=== PATIENT | male | born 1965 | race Caucasian/White ===

== ENCOUNTER 2017-09-25 13:07 | Inpatient (IN) | payer BC ==
[2017-09-25] MEDS ORDERED: Acetaminophen 325 MG Tab PO ONE (13:37)
--- NOTE | 2017-09-25 13:41 | EDM.PDOC ---
ED HPI GENERAL MEDICAL PROBLEM - General Chief Complaint: Gastrointestinal Problem Stated Complaint: ABDOMINAL FLU SX Time Seen by Provider: 09/25/17 13:24 Source of Information: Reports: Patient History Limitations: Reports: No Limitations - History of Present Illness INITIAL COMMENTS - FREE TEXT/NARRATIVE: Patient is a 52 y/o male who presents to the E.D. complaining of diarrhea, abdominlap pain, fever, generalized body aches, and poor appetitie for the past 24 hrs. States he has had 15 plus diarrhea episodes daily with no blood present. Yesterday while at work symptoms drastically worsened after being exposed to aerosal smoke detector spray. States as of today has been dizzy with standing. Appetite has been poor. Complains of generalized weakness. He has had chills off and on as well. Denies ingestion bad or questionable food, recent out of country travel, recent sick exposure, or recent abx's. Denies CP, SOB, dysuria, and or rash. generalized Pain Score (Numeric/FACES): 5 - Related Data Allergies Allergy/AdvReac Type Severity Reaction Status Date / Time No Known Allergies Allergy Verified 09/26/17 04:04 Home Meds: Home Meds Levothyroxine [Synthroid] 100 mcg PO DAILY 09/26/17 [History] Levofloxacin [Levaquin] 500 mg PO DAILY #5 tab 09/27/17 [Rx] Saccharomyces Boulardii [Florastor] 250 mg PO BID #40 cap 09/27/17 [Rx] metroNIDAZOLE [Flagyl] 500 mg PO TID #15 tab 09/27/17 [Rx] Past Medical History - Past Health History Medical/Surgical History: Denies Medical/Surgical History Social & Family History - Family History Family Medical History: Noncontributory - Tobacco Use Smoking Status *Q: Light Tobacco Smoker Years of Tobacco use: 20 Packs/Tins Daily: 0.2 - Caffeine Use Caffeine Use: Reports: Coffee - Recreational Drug Use Recreational Drug Use: No ED ROS GENERAL - Review of Systems Review Of Systems: ROS reveals no pertinent complaints other than HPI. ED EXAM, GI/ABD - Physical Exam Exam: See Below Exam Limited By: No Limitations General Appearance: Alert, WD/WN, No Apparent Distress Eyes: Bilateral: Normal Appearance Ears: Hearing Grossly Normal Nose: Normal Inspection Throat/Mouth: Normal Inspection, Normal Oropharynx, Normal Voice, No Airway Compromise Neck: Normal Inspection, Supple, Non-Tender, Full Range of Motion. No: Lymphadenopathy (L), Lymphadenopathy (R) Respiratory/Chest: No Respiratory Distress, Lungs Clear, Normal Breath Sounds, No Accessory Muscle Use, Chest Non-Tender Cardiovascular: Normal Peripheral Pulses, No Murmur, Tachycardia GI/Abdominal Exam: Soft, No Organomegaly, No Distention, Tender (crampying), Abnormal Bowel Sounds (hyperactive) Back Exam: Normal Inspection. No: CVA Tenderness (L), CVA Tenderness (R) Extremities: Normal Inspection, Normal Range of Motion, Non-Tender, No Pedal Edema, Normal Capillary Refill Neurological: Alert, Oriented, CN II-XII Intact, Normal Cognition, No Motor/ Sensory Deficits Psychiatric: Normal Affect, Normal Mood Skin Exam: Warm, Dry, Intact, Normal Color, No Rash Course - Vital Signs Last Recorded V/S: Last Vital Signs Temp 98.2 F 09/27/17 12:06 Pulse 79 09/27/17 12:06 Resp 18 09/27/17 12:06 BP 125/80 09/27/17 12:06 Pulse Ox 95 09/27/17 12:06 - Orders/Labs/Meds Labs: Laboratory Tests 09/25/17 09/25/17 09/25/17 Range/Units 13:53 13:53 13:53 WBC 18.06 H (4.23-9.07) K/mm3 RBC 5.21 (4.63-6.08) M/mm3 Hgb 15.7 (13.7-17.5) gm/L Hct 45.6 (40.1-51.0) % MCV 87.5 (79.0-92.2) fl MCH 30.1 (25.7-32.2) pg MCHC 34.4 (32.2-35.5) g/dl RDW Std Deviation 41.8 (35.1-43.9) fL Plt Count 178 (163-337) K/mm3 MPV 9.4 (9.4-12.3) fl Neut % (Auto) 92.6 H (34.0-67.9) % Lymph % (Auto) 2.4 L (21.8-53.1) % [place] % (Auto) 4.5 L (5.3-12.2) % Eos % (Auto) 0.1 L (0.8-7.0) Baso % (Auto) 0.1 (0.1-1.2) % Neut # (Auto) 16.72 H (1.78-5.38) K/mm3 Lymph # (Auto) 0.44 L (1.32-3.57) K/mm3 [place] # (Auto) 0.82 (0.30-0.82) K/mm3 Eos # (Auto) 0.01 L (0.04-0.54) K/mm3 Baso # (Auto) 0.02 (0.01-0.08) K/mm3 Manual Slide Review Normal smear PT 12.2 H (9.5-12.1) SECONDS INR 1.12 APTT 30 (24-31) SECONDS Sodium (136-145) mEq/L Potassium (3.5-5.1) mEq/L Chloride (98-107) mEq/L Carbon Dioxide (21-32) mEq/L Anion Gap (5-15) BUN (7-18) mg/dL Creatinine (0.7-1.3) mg/dL Est Cr Clr Drug Dosing mL/min Estimated GFR (MDRD) (>60) mL/min BUN/Creatinine Ratio (14-18) Glucose (74-106) mg/dL Lactic Acid (0.4-2.0) mmol/L Calcium (8.5-10.1) mg/dL Total Bilirubin (0.2-1.0) mg/dL AST (15-37) U/L ALT (16-63) U/L Alkaline Phosphatase (46-116) U/L C-Reactive Protein 17.8 H* (<1.0) mg/dL Total Protein (6.4-8.2) g/dl Albumin (3.4-5.0) g/dl Globulin gm/dL Albumin/Globulin Ratio (1-2) TSH 3rd Generation 0.496 (0.358-3.74) uIU/mL Urine Color (Yellow) Urine Appearance (Clear) Urine pH (5.0-8.0) Ur Specific [place] (1.005-1.030) Urine Protein (Negative) Urine Glucose (UA) (Negative) Urine Ketones (Negative) Urine Occult Blood (Negative) Urine Nitrite (Negative) Urine Bilirubin (Negative) Urine Urobilinogen (0.2-1.0) Ur Leukocyte Esterase (Negative) Urine RBC (0-5) /hpf Urine WBC (0-5) /hpf Ur Epithelial Cells (0-5) /hpf Urine Bacteria (FEW) /hpf Urine Mucus (FEW) /hpf C.difficile 027-NAP1-B1 C. difficile Tox (PCR) Mycoplasma pneumon IgM Negative (NEGATIVE) 09/25/17 09/25/17 09/25/17 Range/Units 13:53 14:02 15:20 WBC (4.23-9.07) K/mm3 RBC (4.63-6.08) M/mm3 Hgb (13.7-17.5) gm/L Hct (40.1-51.0) % MCV (79.0-92.2) fl MCH (25.7-32.2) pg MCHC (32.2-35.5) g/dl RDW Std Deviation (35.1-43.9) fL Plt Count (163-337) K/mm3 MPV (9.4-12.3) fl Neut % (Auto) (34.0-67.9) % Lymph % (Auto) (21.8-53.1) % [place] % (Auto) (5.3-12.2) % Eos % (Auto) (0.8-7.0) Baso % (Auto) (0.1-1.2) % Neut # (Auto) (1.78-5.38) K/mm3 Lymph # (Auto) (1.32-3.57) K/mm3 [place] # (Auto) (0.30-0.82) K/mm3 Eos # (Auto) (0.04-0.54) K/mm3 Baso # (Auto) (0.01-0.08) K/mm3 Manual Slide Review PT (9.5-12.1) SECONDS INR APTT (24-31) SECONDS Sodium 135 L (136-145) mEq/L Potassium 3.3 L (3.5-5.1) mEq/L Chloride 99 (98-107) mEq/L Carbon Dioxide 23 (21-32) mEq/L Anion Gap 16.3 H (5-15) BUN 20 H (7-18) mg/dL Creatinine 1.5 H (0.7-1.3) mg/dL Est Cr Clr Drug Dosing 68.07 mL/min Estimated GFR (MDRD) 49 (>60) mL/min BUN/Creatinine Ratio 13.3 L (14-18) Glucose 101 (74-106) mg/dL Lactic Acid 0.9 (0.4-2.0) mmol/L Calcium 8.7 (8.5-10.1) mg/dL Total Bilirubin 1.1 H (0.2-1.0) mg/dL AST 17 (15-37) U/L ALT 25 (16-63) U/L Alkaline Phosphatase 45 L (46-116) U/L C-Reactive Protein (<1.0) mg/dL Total Protein 7.1 (6.4-8.2) g/dl Albumin 4.0 (3.4-5.0) g/dl Globulin 3.1 gm/dL Albumin/Globulin Ratio 1.3 (1-2) TSH 3rd Generation (0.358-3.74) uIU/mL Urine Color (Yellow) Urine Appearance (Clear) Urine pH (5.0-8.0) Ur Specific [place] (1.005-1.030) Urine Protein (Negative) Urine Glucose (UA) (Negative) Urine Ketones (Negative) Urine Occult Blood (Negative) Urine Nitrite (Negative) Urine Bilirubin (Negative) Urine Urobilinogen (0.2-1.0) Ur Leukocyte Esterase (Negative) Urine RBC (0-5) /hpf Urine WBC (0-5) /hpf Ur Epithelial Cells (0-5) /hpf Urine Bacteria (FEW) /hpf Urine Mucus (FEW) /hpf C.difficile 027-NAP1-B1 Presumptive negative C. difficile Tox (PCR) Negative Mycoplasma pneumon IgM (NEGATIVE) 09/25/17 Range/Units 16:50 WBC (4.23-9.07) K/mm3 RBC (4.63-6.08) M/mm3 Hgb (13.7-17.5) gm/L Hct (40.1-51.0) % MCV (79.0-92.2) fl MCH (25.7-32.2) pg MCHC (32.2-35.5) g/dl RDW Std Deviation (35.1-43.9) fL Plt Count (163-337) K/mm3 MPV (9.4-12.3) fl Neut % (Auto) (34.0-67.9) % Lymph % (Auto) (21.8-53.1) % [place] % (Auto) (5.3-12.2) % Eos % (Auto) (0.8-7.0) Baso % (Auto) (0.1-1.2) % Neut # (Auto) (1.78-5.38) K/mm3 Lymph # (Auto) (1.32-3.57) K/mm3 [place] # (Auto) (0.30-0.82) K/mm3 Eos # (Auto) (0.04-0.54) K/mm3 Baso # (Auto) (0.01-0.08) K/mm3 Manual Slide Review PT (9.5-12.1) SECONDS INR APTT (24-31) SECONDS Sodium (136-145) mEq/L Potassium (3.5-5.1) mEq/L Chloride (98-107) mEq/L Carbon Dioxide (21-32) mEq/L Anion Gap (5-15) BUN (7-18) mg/dL Creatinine (0.7-1.3) mg/dL Est Cr Clr Drug Dosing mL/min Estimated GFR (MDRD) (>60) mL/min BUN/Creatinine Ratio (14-18) Glucose (74-106) mg/dL Lactic Acid (0.4-2.0) mmol/L Calcium (8.5-10.1) mg/dL Total Bilirubin (0.2-1.0) mg/dL AST (15-37) U/L ALT (16-63) U/L Alkaline Phosphatase (46-116) U/L C-Reactive Protein (<1.0) mg/dL Total Protein (6.4-8.2) g/dl Albumin (3.4-5.0) g/dl Globulin gm/dL Albumin/Globulin Ratio (1-2) TSH 3rd Generation (0.358-3.74) uIU/mL Urine Color Yellow (Yellow) Urine Appearance Clear (Clear) Urine pH 6.0 (5.0-8.0) Ur Specific [place] 1.020 (1.005-1.030) Urine Protein 1+ H (Negative) Urine Glucose (UA) Negative (Negative) Urine Ketones Negative (Negative) Urine Occult Blood Negative (Negative) Urine Nitrite Negative (Negative) Urine Bilirubin Negative (Negative) Urine Urobilinogen 0.2 (0.2-1.0) Ur Leukocyte Esterase Negative (Negative) Urine RBC Not seen (0-5) /hpf Urine WBC 0-5 (0-5) /hpf Ur Epithelial Cells 0-5 (0-5) /hpf Urine Bacteria Rare (FEW) /hpf Urine Mucus Not seen (FEW) /hpf C.difficile 027-NAP1-B1 C. difficile Tox (PCR) Mycoplasma pneumon IgM (NEGATIVE) Meds: Medications Discontinued Medications Generic Name Dose Route Start Last Admin Trade Name Freq PRN Reason Stop Dose Admin Acetaminophen 975 mg 09/25/17 13:37 09/25/17 14:01 Tylenol PO 09/25/17 13:38 975 mg NOW ONE Administration Acetaminophen 650 mg 09/25/17 21:19 09/26/17 15:16 Tylenol PO 650 mg Q4H PRN Administration Pain (Mild 1-3)/fever Hydrocodone Bitart/Acetaminophen 1 tab 09/25/17 21:19 [place] 325-5 Mg PO Q4H PRN Pain (moderate 4-6) Albuterol/Ipratropium 3 ml 09/25/17 21:19 Duoneb 3.0-0.5 Mg/3 Ml NEB Q4H PRN Shortness Of Breath/wheezing Hydralazine HCl 20 mg 09/25/17 21:14 Apresoline IVPUSH Q4H PRN Hypertension Hydromorphone HCl 0.25 mg 09/25/17 21:19 Dilaudid IVPUSH Q2H PRN Pain (severe 7-10) Sodium Chloride 2,000 mls @ 999 mls/hr 09/25/17 13:45 09/25/17 14:01 Normal Saline IV 999 mls/hr ASDIRECTED ZEUS Administration Levofloxacin/Dextrose 750 mg/ 150 mls @ 100 mls/hr 09/25/17 15:26 09/25/17 19 :59 Premix IV 09/25/17 16:55 100 mls/hr ONETIME ONE Infusion Sodium Chloride 1,000 mls @ 250 mls/hr 09/25/17 17:00 09/25/17 19:55 Normal Saline IV 999 mls/hr ASDIRECTED ZEUS Infusion Sodium Chloride 1,000 mls @ 250 mls/hr 09/25/17 20:30 09/26/17 04:31 Normal Saline IV 250 mls/hr ASDIRECTED ZEUS Administration Levofloxacin/Dextrose 500 mg/ 100 mls @ 100 mls/hr 09/26/17 15:00 09/27/17 14 :46 Premix IV 100 mls/hr Q24H ZEUS Administration Metronidazole 500 mg/ Premix 100 mls @ 100 mls/hr 09/26/17 03:00 09/27/17 11: 21 IV 100 mls/hr Q8H ZEUS Administration Promethazine HCl 12.5 mg/ 50.5 mls @ 100 mls/hr 09/25/17 21:19 Sodium Chloride IV Q6H PRN Nausea/Vomiting Magnesium Sulfate 2 gm/ Premix 50 mls @ 25 mls/hr 09/26/17 09:00 09/26/17 08: 45 IV 09/26/17 10:59 25 mls/hr ONETIME ONE Administration Sodium Chloride 1,000 mls @ 125 mls/hr 09/26/17 09:00 09/27/17 09:44 Normal Saline IV 125 mls/hr ASDIRECTED [facility] Administration Ketorolac Tromethamine 30 mg 09/25/17 20:47 09/25/17 20:52 Toradol IVPUSH 09/25/17 20:48 30 mg ONETIME ONE Administration Levothyroxine Sodium 25 mcg 09/26/17 06:00 09/27/17 06:33 Levothyroxine PO 25 mcg ACBRK [facility] Administration Levothyroxine Sodium 100 mcg 09/28/17 06:00 Synthroid PO ACBREAKFAST [facility] Lorazepam 2 mg 09/25/17 21:14 Ativan IVPUSH Q4H PRN Seizures Lorazepam 1 mg 09/25/17 21:19 Ativan IV Q6H PRN Anxiety Magnesium Sulfate 1 dose 09/25/17 21:15 Pharmacy To Dose - Magnesium Replacement .XX ASDIRECTED [facility] Magnesium Sulfate 1 dose 09/25/17 21:30 Pharmacy To Dose - Magnesium Replacement .XX ASDIRECTED [facility] Metoprolol Tartrate 5 mg 09/25/17 21:14 Lopressor IVPUSH Q4H PRN Tachycardia Metronidazole 500 mg 09/25/17 19:35 09/25/17 19:55 Flagyl PO 05/20/18 19:36 500 mg ONETIME ONE Administration Ondansetron HCl 4 mg 09/25/17 21:19 Zofran IV Q6H PRN Nausea/Vomiting Potassium Chloride 1 dose 09/25/17 21:15 Pharmacy To Dose - Potassium Replacement .XX ASDIRECTED [facility] Potassium Chloride 40 meq 09/25/17 22:00 09/26/17 03:11 Klor-Con M20 PO 09/26/17 02:01 40 meq Q4H [facility]EUS Administration Saccharomyces Boulardii 250 mg 09/26/17 18:15 09/27/17 09:43 Florastor PO 250 mg BID [facility]EUS Administration Temazepam 15 mg 09/25/17 21:19 09/27/17 01:25 Restoril PO 15 mg BEDTIME PRN Administration Sleep - Re-Assessments/Exams Free Text/Narrative Re-Assessment/Exam: On examination patient's heart rate is 101-103. Oral mucosa is dry. Patient is dizzy with standing. Temperatures 100.8. Patient is septic. Per septic protocol patient should receive 30 mls of IV fluids per kilogram over 3 hours. I ordered a peripheral IV with normal saline 2 L 999 mL per hour. Ordered Tylenol 975 mg by mouth. Initial labs and studies include CBC, chem 14, blood culture 2, lactic acid, mycoplasma pneumonia, stool cultures, stool wbc's, coag studies, TSH, UA, C. difficile, chest x-ray, influenza, 1 view abdomen, and EKG. 09/25/17 13:40 Labs reviewed: White blood cell count 18.06, hemoglobin 15.7, platelet count is 178, neutrophil percent is 92.6, which will not receive 16.72, sodium 135, potassium 3.3, crit 1.5, AG 16.3, BUN 20, total bilirubin is 1.1, CRP 17.8, TSH 0.496, mycoplasma was negative. 09/25/17 16:07 I initially ordered levaquin. This was cancelled. Ordered for 3 rd liter of NS to be pushed in. Patient is unable to provide a UA. I did order CT of the abdomen and pelvis with IV and oral contrast. Cr is 1.5 will obtain with oral contrast only. I have asked nursing staff to obtain straight cath ua. Stool wbc's were positive. 1609 Patient has refused straight cath. Influenza and UA have not been obtained. 1710 Influenza screen negative. Mycoplasma pneumonia negative. UA only positive for protein. CT of the abdomen and pelvis have been delayed since 2 x trauma patients have taken precedence. 09/25/17 17:42 I have spoke with Dr. Dennis does not suggest any antibiotics at this time. Unsure source. Await for CT to rule out other etiology's. 192 Diffuse thickening of the wall of the colon is present. Findings are consistent with diffuse colitis. Ordered flagyl 500mg PO and restarted levaquin 750mg IV. MCG to be completed by nursing staff. Patient agrees with admission. I have ordered the remaining IVF be pushed wide open. I have attempted to contact Dr. Dennis with no answer. 09/25/17 20:[address] Dennis he has accepted the patient. Departure - Departure Time of Disposition: 16:07 Disposition: Admitted As Inpatient 65 Condition: Fair Clinical Impression: Colitis, Diarrhea, Dehydration - Discharge Information
[2017-09-25] MEDS ORDERED: Sodium Chloride 0.9% 2,000 ML IV SCH (13:45)
[2017-09-25] MEDS ORDERED: Levofloxacin/Dextrose 5%-Water 750 MG in Premix Bag 1 BAG IV ONE (15:26)
[2017-09-25] MEDS ORDERED: Sodium Chloride 0.9% 1,000 ML IV SCH (17:00)
[2017-09-25] MEDS ORDERED: metroNIDAZOLE 500 MG Tab PO ONE (19:35)
[2017-09-25] MEDS: Sodium Chloride 0.9% 1,000 ML IV SCH (20:32)
[2017-09-25] MEDS ORDERED: Ketorolac 30 MG/ML SDV IVPUSH ONE (20:47)
[2017-09-25] MEDS ORDERED: hydrALAZINE 20 MG/ML SDV IVPUSH PRN (21:14)
[2017-09-25] MEDS ORDERED: LORazepam 2 MG/ML SDV IVPUSH PRN (21:14)
[2017-09-25] MEDS ORDERED: Metoprolol Tartrate 5 MG/5 ML SDV IVPUSH PRN (21:14)
[2017-09-25] MEDS ORDERED: Acetaminophen/HYDROcodone 325-5 MG Tab PO PRN (21:19)
[2017-09-25] MEDS ORDERED: Albuterol/Ipratropium 3.0-0.5 MG/3 ML Neb Soln NEB PRN (21:19)
[2017-09-25] MEDS ORDERED: LORazepam 2 MG/ML SDV IV PRN (21:19)
[2017-09-25] MEDS ORDERED: HYDROmorphone 0.5 MG/0.5 ML SYRINGE IVPUSH PRN (21:19)
[2017-09-25] MEDS ORDERED: Ondansetron 4 MG/2 ML SDV IV PRN (21:19)
[2017-09-25] MEDS ORDERED: Promethazine 12.5 MG in Sodium Chloride 0.9% 50 ML IV PRN (21:19)
--- NOTE | 2017-09-25 21:33 | PCM.HP ---
H&P History of Present Illness - General Date of Service: 09/25/17 Admit Problem/Dx: Admission Diagnosis/Problem Admission Diagnosis/Problem Colitis Source of Information: Patient, Old Records, Provider, RN Notes Reviewed History Limitations: Reports: No Limitations - History of Present Illness Initial Comments - Free Text/Narative: This is a 52 yo white male with past medical hx/o hypothyroidism who comes in for evaluation of watery diarrhea that started last. He denies ingesting unusual drinks or liquids. His last meal was at about 1630; a couple days old of home made sloppy danii and potato salad. He denies any fever or chills. He reports no other family members who fell ill. He is 3 years behind of his screening colonoscopy. His initial workup in the emergency department shows a CBC remarkable for 18.06 , neutrophils of 92.6%, lymphocytes of 2.4%, monocytes of 4.5% and eosinophils of 0.1%. His coagulation studies show PT of 12.2, INR of 1.112, and a PTT of 30. His chemistry is significant for sodium of 135, potassium of 3.3, anion gap of 16.3, BUN of 20, creatinine of 1.5, total bilirubin of 1.1, alkaline phosphatase of 45, and CRP of 17.8. UA is negative for UTI. C difficile screening is negative. He is being admitted for abdominal colitis. He is full code. generalized Pain Score (Numeric/FACES): 5 - Related Data Allergies/Adverse Reactions: Allergies Allergy/AdvReac Type Severity Reaction Status Date / Time No Known Allergies Allergy Verified 09/26/17 04:04 Home Medications: Home Meds Levothyroxine [Sythroid] 100 mcg PO DAILY 09/26/17 [History] Past Medical History - Past Health History Medical/Surgical History: Denies Medical/Surgical History Social & Family History - Family History Family Medical History: Noncontributory - Tobacco Use Smoking Status *Q: Light Tobacco Smoker Years of Tobacco use: 20 Packs/Tins Daily: 0.2 - Caffeine Use Caffeine Use: Reports: Coffee - Recreational Drug Use Recreational Drug Use: No H&P Review of Systems - Review of Systems: Review Of Systems: See Below General: Denies: Fever, Chills, Malaise, Weakness HEENT: Reports: No Symptoms Pulmonary: Denies: Shortness of Breath Cardiovascular: Denies: Chest Pain, Orthopnea, Lightheadedness, Syncope, Blood Pressure Problem Gastrointestinal: Reports: Diarrhea, Flatus. Denies: Abdominal Pain, Constipation, Decreased Appetite, Difficulty Swallowing, Distension, Hematemesis , Hematochezia, Mucous in Stool, Nausea, Vomiting Genitourinary: Reports: No Symptoms Musculoskeletal: Reports: No Symptoms Skin: Denies: Mottled, Pallor, Diaphoresis, Rash, Erythema Psychiatric: Denies: Confusion, Depression, Mood Lability, Anxiety, Agitation, Hallucinations Neurological: Denies: Confusion, Dizziness, Syncope, Difficulty Walking, Weakness Hematologic/Lymphatic: Reports: No Symptoms Immunologic: Reports: No Symptoms Exam - Exam Exam: See Below - Vital Signs Vital Signs: Last Vital Signs Temp 38.5 C H 09/25/17 20:54 Pulse 108 H 09/25/17 13:09 Resp 27 H 09/25/17 20:54 BP 104/59 L 09/25/17 20:54 Pulse Ox 94 L 09/25/17 20:54 Weight: 92.986 kg - Exam General: Alert, Oriented, Cooperative. No: Mild Distress HEENT: Conjunctiva Clear, EACs Clear, EOMI, Hearing Intact, Mucosa Moist & [place] , Nares Patent, Normal Nasal Septum, Posterior Pharynx Clear, Pupils Equal, Pupils Reactive Neck: Supple, Trachea Midline, +2 Carotid Pulse wo Bruit, Full Range of Motion. No: Lymphadenopathy, JVD Lungs: Clear to Auscultation, Normal Respiratory Effort Cardiovascular: Regular Rate, Regular Rhythm GI/Abdominal Exam: Normal Bowel Sounds, Soft, No Organomegaly, No Distention, No Abnormal Bruit, Guarding, Tender (midly tender on mid abdomen with deep palpation). No: No Mass, Rigid, Rebound, Hepatomegaly, Splenomegaly (Male) Exam: Deferred Rectal (Males) Exam: Deferred Back Exam: Normal Inspection, Full Range of Motion Extremities: Normal Inspection, Normal Range of Motion, Non-Tender, No Pedal Edema, Normal Capillary Refill Peripheral Pulses: 3+: Posterior Tibial (L), Posterior Tibial (R), Dorsalis Pedis (L), Dorsalis Pedis (R) Skin: Warm, Dry, Intact Neuro Extensive - Mental Status: Oriented x3, Normal Cognition, Memory Intact Neuro Extensive - Motor, Sensory, Reflexes: CN II-XII Intact, Normal Gait, Normal Reflexes Psychiatric: Alert, Normal Affect, Normal Mood - Patient Data Lab Results Last 24 hrs: Laboratory Results - last 24 hr 09/25/17 09/25/17 09/25/17 Range/Units 13:53 13:53 13:53 WBC 18.06 H (4.23-9.07) K/mm3 RBC 5.21 (4.63-6.08) M/mm3 Hgb 15.7 (13.7-17.5) gm/L Hct 45.6 (40.1-51.0) % MCV 87.5 (79.0-92.2) fl MCH 30.1 (25.7-32.2) pg MCHC 34.4 (32.2-35.5) g/dl RDW Std Deviation 41.8 (35.1-43.9) fL Plt Count 178 (163-337) K/mm3 MPV 9.4 (9.4-12.3) fl Neut % (Auto) 92.6 H (34.0-67.9) % Lymph % (Auto) 2.4 L (21.8-53.1) % Saunders % (Auto) 4.5 L (5.3-12.2) % Eos % (Auto) 0.1 L (0.8-7.0) Baso % (Auto) 0.1 (0.1-1.2) % Neut # (Auto) 16.72 H (1.78-5.38) K/mm3 Lymph # (Auto) 0.44 L (1.32-3.57) K/mm3 Saunders # (Auto) 0.82 (0.30-0.82) K/mm3 Eos # (Auto) 0.01 L (0.04-0.54) K/mm3 Baso # (Auto) 0.02 (0.01-0.08) K/mm3 Manual Slide Review Normal smear PT 12.2 H (9.5-12.1) SECONDS INR 1.12 APTT 30 (24-31) SECONDS Sodium (136-145) mEq/L Potassium (3.5-5.1) mEq/L Chloride (98-107) mEq/L Carbon Dioxide (21-32) mEq/L Anion Gap (5-15) BUN (7-18) mg/dL Creatinine (0.7-1.3) mg/dL Est Cr Clr Drug Dosing mL/min Estimated GFR (MDRD) (>60) mL/min BUN/Creatinine Ratio (14-18) Glucose (74-106) mg/dL Lactic Acid (0.4-2.0) mmol/L Calcium (8.5-10.1) mg/dL Total Bilirubin (0.2-1.0) mg/dL AST (15-37) U/L ALT (16-63) U/L Alkaline Phosphatase (46-116) U/L C-Reactive Protein 17.8 H* (<1.0) mg/dL Total Protein (6.4-8.2) g/dl Albumin (3.4-5.0) g/dl Globulin gm/dL Albumin/Globulin Ratio (1-2) TSH 3rd Generation 0.496 (0.358-3.74) uIU/mL Urine Color (Yellow) Urine Appearance (Clear) Urine pH (5.0-8.0) Ur Specific [place] (1.005-1.030) Urine Protein (Negative) Urine Glucose (UA) (Negative) Urine Ketones (Negative) Urine Occult Blood (Negative) Urine Nitrite (Negative) Urine Bilirubin (Negative) Urine Urobilinogen (0.2-1.0) Ur Leukocyte Esterase (Negative) Urine RBC (0-5) /hpf Urine WBC (0-5) /hpf Ur Epithelial Cells (0-5) /hpf Urine Bacteria (FEW) /hpf Urine Mucus (FEW) /hpf C.difficile 027-NAP1-B1 C. difficile Tox (PCR) Mycoplasma pneumon IgM Negative (NEGATIVE) 09/25/17 09/25/17 09/25/17 Range/Units 13:53 14:02 15:20 WBC (4.23-9.07) K/mm3 RBC (4.63-6.08) M/mm3 Hgb (13.7-17.5) gm/L Hct (40.1-51.0) % MCV (79.0-92.2) fl MCH (25.7-32.2) pg MCHC (32.2-35.5) g/dl RDW Std Deviation (35.1-43.9) fL Plt Count (163-337) K/mm3 MPV (9.4-12.3) fl Neut % (Auto) (34.0-67.9) % Lymph % (Auto) (21.8-53.1) % Saunders % (Auto) (5.3-12.2) % Eos % (Auto) (0.8-7.0) Baso % (Auto) (0.1-1.2) % Neut # (Auto) (1.78-5.38) K/mm3 Lymph # (Auto) (1.32-3.57) K/mm3 Saunders # (Auto) (0.30-0.82) K/mm3 Eos # (Auto) (0.04-0.54) K/mm3 Baso # (Auto) (0.01-0.08) K/mm3 Manual Slide Review PT (9.5-12.1) SECONDS INR APTT (24-31) SECONDS Sodium 135 L (136-145) mEq/L Potassium 3.3 L (3.5-5.1) mEq/L Chloride 99 (98-107) mEq/L Carbon Dioxide 23 (21-32) mEq/L Anion Gap 16.3 H (5-15) BUN 20 H (7-18) mg/dL Creatinine 1.5 H (0.7-1.3) mg/dL Est Cr Clr Drug Dosing 68.07 mL/min Estimated GFR (MDRD) 49 (>60) mL/min BUN/Creatinine Ratio 13.3 L (14-18) Glucose 101 (74-106) mg/dL Lactic Acid 0.9 (0.4-2.0) mmol/L Calcium 8.7 (8.5-10.1) mg/dL Total Bilirubin 1.1 H (0.2-1.0) mg/dL AST 17 (15-37) U/L ALT 25 (16-63) U/L Alkaline Phosphatase 45 L (46-116) U/L C-Reactive Protein (<1.0) mg/dL Total Protein 7.1 (6.4-8.2) g/dl Albumin 4.0 (3.4-5.0) g/dl Globulin 3.1 gm/dL Albumin/Globulin Ratio 1.3 (1-2) TSH 3rd Generation (0.358-3.74) uIU/mL Urine Color (Yellow) Urine Appearance (Clear) Urine pH (5.0-8.0) Ur Specific [place] (1.005-1.030) Urine Protein (Negative) Urine Glucose (UA) (Negative) Urine Ketones (Negative) Urine Occult Blood (Negative) Urine Nitrite (Negative) Urine Bilirubin (Negative) Urine Urobilinogen (0.2-1.0) Ur Leukocyte Esterase (Negative) Urine RBC (0-5) /hpf Urine WBC (0-5) /hpf Ur Epithelial Cells (0-5) /hpf Urine Bacteria (FEW) /hpf Urine Mucus (FEW) /hpf C.difficile 027-NAP1-B1 Presumptive negative C. difficile Tox (PCR) Negative Mycoplasma pneumon IgM (NEGATIVE) 09/25/17 Range/Units 16:50 WBC (4.23-9.07) K/mm3 RBC (4.63-6.08) M/mm3 Hgb (13.7-17.5) gm/L Hct (40.1-51.0) % MCV (79.0-92.2) fl MCH (25.7-32.2) pg MCHC (32.2-35.5) g/dl RDW Std Deviation (35.1-43.9) fL Plt Count (163-337) K/mm3 MPV (9.4-12.3) fl Neut % (Auto) (34.0-67.9) % Lymph % (Auto) (21.8-53.1) % Saunders % (Auto) (5.3-12.2) % Eos % (Auto) (0.8-7.0) Baso % (Auto) (0.1-1.2) % Neut # (Auto) (1.78-5.38) K/mm3 Lymph # (Auto) (1.32-3.57) K/mm3 [place] # (Auto) (0.30-0.82) K/mm3 Eos # (Auto) (0.04-0.54) K/mm3 Baso # (Auto) (0.01-0.08) K/mm3 Manual Slide Review PT (9.5-12.1) SECONDS INR APTT (24-31) SECONDS Sodium (136-145) mEq/L Potassium (3.5-5.1) mEq/L Chloride (98-107) mEq/L Carbon Dioxide (21-32) mEq/L Anion Gap (5-15) BUN (7-18) mg/dL Creatinine (0.7-1.3) mg/dL Est Cr Clr Drug Dosing mL/min Estimated GFR (MDRD) (>60) mL/min BUN/Creatinine Ratio (14-18) Glucose (74-106) mg/dL Lactic Acid (0.4-2.0) mmol/L Calcium (8.5-10.1) mg/dL Total Bilirubin (0.2-1.0) mg/dL AST (15-37) U/L ALT (16-63) U/L Alkaline Phosphatase (46-116) U/L C-Reactive Protein (<1.0) mg/dL Total Protein (6.4-8.2) g/dl Albumin (3.4-5.0) g/dl Globulin gm/dL Albumin/Globulin Ratio (1-2) TSH 3rd Generation (0.358-3.74) uIU/mL Urine Color Yellow (Yellow) Urine Appearance Clear (Clear) Urine pH 6.0 (5.0-8.0) Ur Specific [place] 1.020 (1.005-1.030) Urine Protein 1+ H (Negative) Urine Glucose (UA) Negative (Negative) Urine Ketones Negative (Negative) Urine Occult Blood Negative (Negative) Urine Nitrite Negative (Negative) Urine Bilirubin Negative (Negative) Urine Urobilinogen 0.2 (0.2-1.0) Ur Leukocyte Esterase Negative (Negative) Urine RBC Not seen (0-5) /hpf Urine WBC 0-5 (0-5) /hpf Ur Epithelial Cells 0-5 (0-5) /hpf Urine Bacteria Rare (FEW) /hpf Urine Mucus Not seen (FEW) /hpf C.difficile 027-NAP1-B1 C. difficile Tox (PCR) Mycoplasma pneumon IgM (NEGATIVE) Result Diagrams: 09/26/17 05:40 09/26/17 05:40 Uriel Results Last 24 hrs: Microbiology 09/25/17 15:48 Influenza Type A Antigen Screen - Final Nasal Aspirate, Unspecified NEGATIVE INFLUENZA A VIRUS AG Influenza Type B Antigen Screen - Final NEGATIVE INFLUENZA B VIRUS AG 09/25/17 13:35 Stool for WBCs - Final Stool / Feces Problem List Initiated/Reviewed/Updated: Yes Orders Last 24hrs: Active Orders 24 hr Category Date Time Status Patient Status [ADT] Routine ADT 09/25/17 20:43 Active EKG Documentation Completion [RC] STAT Care 09/25/17 13:35 Active Height and Weight [RC] DAILY Care 09/25/17 21:19 Active Intake and Output [RC] QSHIFT Care 09/25/17 21:20 Active Oxygen Therapy [RC] PRN Care 09/25/17 21:20 Active RT Aerosol Therapy [RC] ASDIRECTED Care 09/25/17 21:21 Active Up ad Joyti [RC] ASDIRECTED Care 09/25/17 21:19 Active VTE/DVT Education [RC] PER UNIT ROUTINE Care 09/25/17 21:20 Active Vital Signs [RC] Q4H Care 09/25/17 21:20 Active Consult to Case Management [CONS] Routine Cons 09/25/17 21:22 Active Consult to Copper Plater [CONS] Routine Cons 09/25/17 21:22 Active Nothing per Oral Now Diet [DIET] Diet 09/25/17 Dinner Active Abdomen 1V Flat [CR] Stat Exams 09/25/17 13:35 Taken Abdomen Pelvis wo Cont [CT] Stat Exams 09/25/17 17:16 Taken Chest 2V [CR] Stat Exams 09/25/17 13:33 Taken BASIC METABOLIC PANEL,BMP [CHEM] AM Lab 09/26/17 05:11 Ordered BASIC METABOLIC PANEL,BMP [CHEM] AM Lab 09/27/17 05:11 Ordered BASIC METABOLIC PANEL,BMP [CHEM] AM Lab 09/28/17 05:11 Ordered BASIC METABOLIC PANEL,BMP [CHEM] AM Lab 09/29/17 05:11 Ordered BASIC METABOLIC PANEL,BMP [CHEM] AM Lab 09/30/17 05:11 Ordered C-REACTIVE PROTEIN [CHEM] AM Lab 09/26/17 05:11 Ordered C-REACTIVE PROTEIN [CHEM] AM Lab 09/27/17 05:11 Ordered C-REACTIVE PROTEIN [CHEM] AM Lab 09/28/17 05:11 Ordered C-REACTIVE PROTEIN [CHEM] AM Lab 09/29/17 05:11 Ordered C-REACTIVE PROTEIN [CHEM] AM Lab 09/30/17 05:11 Ordered CBC WITH AUTO DIFF [HEME] AM Lab 09/26/17 05:11 Ordered CBC WITH AUTO DIFF [HEME] AM Lab 09/27/17 05:11 Ordered CBC WITH AUTO DIFF [HEME] AM Lab 09/28/17 05:11 Ordered CBC WITH AUTO DIFF [HEME] AM Lab 09/29/17 05:11 Ordered CBC WITH AUTO DIFF [HEME] AM Lab 09/30/17 05:11 Ordered CULTURE BLOOD [BC] Stat Lab 09/25/17 13:53 Received CULTURE BLOOD [BC] Stat Lab 09/25/17 14:02 Received CULTURE STOOL + SHIGATOX [RM] Stat Lab 09/25/17 13:35 Ordered INFLUENZA A+B AG SCREEN [RM] Stat Lab 09/25/17 15:48 Ordered MAGNESIUM [CHEM] AM Lab 09/26/17 05:11 Ordered MAGNESIUM [CHEM] AM Lab 09/27/17 05:11 Ordered MAGNESIUM [CHEM] AM Lab 09/28/17 05:11 Ordered MAGNESIUM [CHEM] AM Lab 09/29/17 05:11 Ordered MAGNESIUM [CHEM] AM Lab 09/30/17 05:11 Ordered WBC, STOOL [OP] Stat Lab 09/25/17 13:35 Ordered Acetaminophen [Tylenol] Med 09/25/17 21:19 Active 650 mg PO Q4H PRN Acetaminophen/HYDROcodone [[place]ows 325-5 MG] Med 09/25/17 21:19 Active 1 tab PO Q4H PRN Albuterol/Ipratropium [DuoNeb 3.0-0.5 MG/3 ML] Med 09/25/17 21:19 Active 3 ml NEB Q4H PRN HYDROmorphone [Dilaudid] Med 09/25/17 21:19 Active 0.25 mg IVPUSH Q2H PRN LORazepam [Ativan] Med 09/25/17 21:19 Active 1 mg IV Q6H PRN LORazepam [Ativan] Med 09/25/17 21:14 Ordered 2 mg IVPUSH Q4H PRN Levofloxacin/Dextrose 5%-Water [Levaquin in D5W 500 MG/ Med 09/26/17 15:00 Ordered 100 ML] 500 mg Premix Bag 1 bag IV Q24H Levothyroxine Med 09/26/17 09:00 Ordered 25 mcg PO DAILY Magnesium Rep Pharmacy to Dose [Pharmacy to Dose - Med 09/25/17 21:15 Ordered Magnesium Replacement] 1 dose .XX ASDIRECTED Magnesium Rep Pharmacy to Dose [Pharmacy to Dose - Med 09/25/17 21:30 Ordered Magnesium Replacement] 1 dose .XX ASDIRECTED Metoprolol Tartrate [Lopressor] Med 09/25/17 21:14 Ordered 5 mg IVPUSH Q4H PRN Ondansetron [Zofran] Med 09/25/17 21:19 Active 4 mg IV Q6H PRN Potassium Rep Pharmacy to Dose [Pharmacy to Dose - Med 09/25/17 21:15 Ordered Potassium Replacement] 1 dose .XX ASDIRECTED Promethazine [Phenergan] 12.5 mg Med 09/25/17 21:19 Active Sodium Chloride 0.9% [Normal Saline] 50 ml IV Q6H Sodium Chloride 0.9% [Normal Saline] 1,000 ml Med 09/25/17 17:00 Active IV ASDIRECTED Sodium Chloride 0.9% [Normal Saline] 1,000 ml Med 09/25/17 20:30 Active IV ASDIRECTED Sodium Chloride 0.9% [Normal Saline] 2,000 ml Med 09/25/17 13:45 Active IV ASDIRECTED Temazepam [Restoril] Med 09/25/17 21:19 Ordered 15 mg PO BEDTIME PRN hydrALAZINE [Apresoline] Med 09/25/17 21:14 Ordered 20 mg IVPUSH Q4H PRN metroNIDAZOLE/Normal Saline [Flagyl 500 MG in NS 100 ML Med 09/25/17 03:00 Ordered ] 500 mg Premix Bag 1 bag IV Q8H Blood Culture x2 Reflex Set [OM.PC] Stat Oth 09/25/17 13:33 Ordered Sequential Compression Device [OM.PC] Per Unit Routine Oth 09/25/17 21:20 Ordered Resuscitation Status Routine Resus Stat 09/25/17 21:19 Ordered Medication Orders Acetaminophen (Tylenol) 650 mg PO Q4H PRN PRN Reason: Pain (Mild 1-3)/fever Hydrocodone Bitart/Acetaminophen ([place] 325-5 Mg) 1 tab PO Q4H PRN PRN Reason: Pain (moderate 4-6) Albuterol/Ipratropium (Duoneb 3.0-0.5 Mg/3 Ml) 3 ml NEB Q4H PRN PRN Reason: Shortness Of Breath/wheezing Hydralazine HCl (Apresoline) 20 mg IVPUSH Q4H PRN PRN Reason: Hypertension Hydromorphone HCl (Dilaudid) 0.25 mg IVPUSH Q2H PRN PRN Reason: Pain (severe 7-10) Sodium Chloride (Normal Saline) 2,000 mls @ 999 mls/hr IV ASDIRECTED [facility] Last Admin: 09/25/17 14:01 Dose: 999 mls/hr Sodium Chloride (Normal Saline) 1,000 mls @ 250 mls/hr IV ASDIRECTED [facility] Last Infusion: 09/25/17 19:55 Dose: 999 mls/hr Admin: 09/25/17 17:04 Dose: 250 mls/hr Sodium Chloride (Normal Saline) 1,000 mls @ 250 mls/hr IV ASDIRECTED [facility] Last Admin: 09/25/17 20:32 Dose: 250 mls/hr Levofloxacin/Dextrose 500 mg/ (Premix) 100 mls @ 100 mls/hr IV Q24H [facility] Metronidazole 500 mg/ Premix 100 mls @ 100 mls/hr IV Q8H [facility] Promethazine HCl 12.5 mg/ (Sodium Chloride) 50.5 mls @ 100 mls/hr IV Q6H PRN PRN Reason: Nausea/Vomiting Levothyroxine Sodium (Levothyroxine) 25 mcg PO DAILY [facility] Lorazepam (Ativan) 2 mg IVPUSH Q4H PRN PRN Reason: Seizures Lorazepam (Ativan) 1 mg IV Q6H PRN PRN Reason: Anxiety Magnesium Sulfate (Pharmacy To Dose - Magnesium Replacement) 1 dose .XX ASDIRECTED [facility] Magnesium Sulfate (Pharmacy To Dose - Magnesium Replacement) 1 dose .XX ASDIRECTED [facility] Metoprolol Tartrate (Lopressor) 5 mg IVPUSH Q4H PRN PRN Reason: Tachycardia Ondansetron HCl (Zofran) 4 mg IV Q6H PRN PRN Reason: Nausea/Vomiting Potassium Chloride (Pharmacy To Dose - Potassium Replacement) 1 dose .XX ASDIRECTED [facility] Temazepam (Restoril) 15 mg PO BEDTIME PRN PRN Reason: Sleep Assessment/Plan Comment:: Assessment/Plan: Acute: Abdominal Colitis - Bacterial vs Viral in etiology - Sloppy Danii and potato salad-likely Staph vs E coli - WBC pos on stool; WBC is 18.06K and CRP is 17.8 - C. Diff negative with pending O&P - Abdominal/Pelvis CT scan shows diffuse colitis - IV Flagyl 500 mg Q8H and Levaquin 500 mg IV daily - Volume Resuscitation Dehydration - 2/2 GI Loss - IV Hydration Hypokalemia - K 3.3 - 2/2 inadequate intake - Replete and monitor Chronic: Hypothyroidism Plan: Admit to [facility]SP Routine AM Labs Resume Thyroid Medication Adequate IV Hydration Monitor electrolytes Okay to drink Gatorade NPO except oral pills, ice chips, fluids Code status: 1
[2017-09-25] MEDS: Potassium Chloride 20 MEQ Tab.ER PO SCH (22:38)
[2017-09-25] MEDS: Temazepam 15 MG Cap PO PRN (22:44)
[2017-09-26] MEDS: Sodium Chloride 0.9% 1,000 ML IV SCH ×4 (01:04→17:27)
[2017-09-26] MEDS: metroNIDAZOLE/Normal Saline 500 MG in Premix Bag 1 BAG IV SCH ×3 (03:09→18:52)
[2017-09-26] MEDS: Potassium Chloride 20 MEQ Tab.ER PO SCH (03:11)
[2017-09-26] MEDS: Acetaminophen 325 MG Tab PO PRN ×2 (03:12→15:16)
[2017-09-26] MEDS: Levothyroxine 25 MCG Tab PO SCH (06:19)
[2017-09-26] MEDS ORDERED: Magnesium Sulfate/Water 2 GM in Premix Bag 1 BAG IV ONE (09:00)
--- NOTE | 2017-09-26 12:06 | CR ---
Chest: Two views of the chest were obtained. Comparison: No prior chest x-ray. Heart size and mediastinum are within normal limits. Lungs are clear. Bony structures are unremarkable. Impression: 1. Nothing acute is seen on two-view chest x-ray. Diagnostic code #1
--- NOTE | 2017-09-26 12:06 | CR ---
Abdomen: Supine view of the abdomen was obtained. Comparison: No prior abdominal imaging. Bowel gas pattern appears normal. No abnormal calcifications or soft tissue abnormality is seen. Bony structures are unremarkable. Impression: 1. Nothing acute is seen on supine abdominal x-ray. Diagnostic code #1
--- NOTE | 2017-09-26 12:06 | CT ---
CT abdomen and pelvis Technique: Multiple axial sections were obtained from above the dome of the diaphragm inferiorly through the pubic symphysis. Oral contrast has been given. No intravenous contrast was utilized. Findings: Diffuse bowel wall thickening seen throughout the colon with mild inflammatory change seen around the colonic wall. Appendix is seen which is normal in size. Visualized lung bases show nothing acute. Noncontrast appearance of the liver and spleen appear within normal limits. Adrenal glands show no nodule. Kidneys show no hydronephrosis or abnormal calcifications. Pancreas shows no discrete abnormality. Aorta shows no aneurysmal dilatation. Gallbladder contains no calcified gallstones. No retroperitoneal adenopathy or mesenteric abnormalities are seen. No pelvic mass or adenopathy is seen. Prostate gland is slightly enlarged. Bone window settings were reviewed which show scattered degenerative change within the spine. Incidental hemangioma noted of L1. Impression: 1. Findings compatible with diffuse colitis. 2. Other incidental findings. Diagnostic code #3 I agree with preliminary report from [facility], finalized at 09/25/17, 8:25 PM Central Time
[2017-09-26] MEDS: Levofloxacin/Dextrose 5%-Water 500 MG in Premix Bag 1 BAG IV SCH (15:09)
--- NOTE | 2017-09-26 15:45 | PCM.PN ---
- General Info Date of Service: 09/26/17 Admission Dx/Problem (Free Text): Admission Diagnosis/Problem Admission Diagnosis/Problem Colitis Subjective Update: In to see Christopher today. He is lying in bed. Overall he is doing quite well. He has no complaints, except for some mild abdominal pain rated 2/10. He has been sleeping well. Good appetite. Ambulating. Pain is controlled. No Fever, chills , nausea, vomiting. He is still having some diarrhea. Urinating. No concerns from nursing. Functional Status: Reports: Pain Controlled, Tolerating Diet, Ambulating, Urinating - Review of Systems General: Reports: No Symptoms. Denies: Fever, Chills HEENT: Reports: No Symptoms Pulmonary: Reports: No Symptoms Cardiovascular: Reports: No Symptoms Gastrointestinal: Reports: Abdominal Pain (2/10 pain, constant), Diarrhea. Denies: Constipation, Nausea, Vomiting Genitourinary: Reports: No Symptoms Musculoskeletal: Reports: No Symptoms Skin: Reports: No Symptoms Neurological: Reports: No Symptoms Psychiatric: Reports: No Symptoms - Patient Data Vitals - Most Recent: Last Vital Signs Temp 99.3 F 09/26/17 08:51 Pulse 92 09/26/17 12:25 Resp 20 09/26/17 12:25 BP 119/69 09/26/17 12:25 Pulse Ox 94 L 09/26/17 12:25 Weight - Most Recent: 212 lb I&O - Last 24 Hours: Intake & Output 09/26/17 09/26/17 09/26/17 06:59 14:59 22:59 Intake Total 2388 Output Total 950 Balance 1438 Lab Results Last 24 Hours: Laboratory Results - last 24 hr 09/25/17 09/25/17 09/25/17 Range/Units 13:53 15:20 16:50 WBC (4.23-9.07) K/mm3 RBC (4.63-6.08) M/mm3 Hgb (13.7-17.5) gm/L Hct (40.1-51.0) % MCV (79.0-92.2) fl MCH (25.7-32.2) pg MCHC (32.2-35.5) g/dl RDW Std Deviation (35.1-43.9) fL Plt Count (163-337) K/mm3 MPV (9.4-12.3) fl Neut % (Auto) (34.0-67.9) % Lymph % (Auto) (21.8-53.1) % [place] % (Auto) (5.3-12.2) % Eos % (Auto) (0.8-7.0) Baso % (Auto) (0.1-1.2) % Neut # (Auto) (1.78-5.38) K/mm3 Lymph # (Auto) (1.32-3.57) K/mm3 [place] # (Auto) (0.30-0.82) K/mm3 Eos # (Auto) (0.04-0.54) K/mm3 Baso # (Auto) (0.01-0.08) K/mm3 Manual Slide Review Sodium 135 L (136-145) mEq/L Potassium 3.3 L (3.5-5.1) mEq/L Chloride 99 (98-107) mEq/L Carbon Dioxide 23 (21-32) mEq/L Anion Gap 16.3 H (5-15) BUN 20 H (7-18) mg/dL Creatinine 1.5 H (0.7-1.3) mg/dL Est Cr Clr Drug Dosing 68.07 mL/min Estimated GFR (MDRD) 49 (>60) mL/min BUN/Creatinine Ratio 13.3 L (14-18) Glucose 101 (74-106) mg/dL Calcium 8.7 (8.5-10.1) mg/dL Magnesium (1.8-2.4) mg/dl Total Bilirubin 1.1 H (0.2-1.0) mg/dL AST 17 (15-37) U/L ALT 25 (16-63) U/L Alkaline Phosphatase 45 L (46-116) U/L C-Reactive Protein (<1.0) mg/dL Total Protein 7.1 (6.4-8.2) g/dl Albumin 4.0 (3.4-5.0) g/dl Globulin 3.1 gm/dL Albumin/Globulin Ratio 1.3 (1-2) Urine Color Yellow (Yellow) Urine Appearance Clear (Clear) Urine pH 6.0 (5.0-8.0) Ur Specific [place] 1.020 (1.005-1.030) Urine Protein 1+ H (Negative) Urine Glucose (UA) Negative (Negative) Urine Ketones Negative (Negative) Urine Occult Blood Negative (Negative) Urine Nitrite Negative (Negative) Urine Bilirubin Negative (Negative) Urine Urobilinogen 0.2 (0.2-1.0) Ur Leukocyte Esterase Negative (Negative) Urine RBC Not seen (0-5) /hpf Urine WBC 0-5 (0-5) /hpf Ur Epithelial Cells 0-5 (0-5) /hpf Urine Bacteria Rare (FEW) /hpf Urine Mucus Not seen (FEW) /hpf C.difficile [id number] Presumptive negative C. difficile Tox (PCR) Negative 09/26/17 09/26/17 Range/Units 05:40 05:40 WBC 12.17 H (4.23-9.07) K/mm3 RBC 4.67 (4.63-6.08) M/mm3 Hgb 14.3 (13.7-17.5) gm/L Hct 41.5 (40.1-51.0) % MCV 88.9 (79.0-92.2) fl MCH 30.6 (25.7-32.2) pg MCHC 34.5 (32.2-35.5) g/dl RDW Std Deviation 43.3 (35.1-43.9) fL Plt Count 142 L (163-337) K/mm3 MPV 9.7 (9.4-12.3) fl Neut % (Auto) 91.0 H (34.0-67.9) % Lymph % (Auto) 3.2 L (21.8-53.1) % Dar[place] % (Auto) 5.5 (5.3-12.2) % Eos % (Auto) 0 L (0.8-7.0) Baso % (Auto) 0.1 (0.1-1.2) % Neut # (Auto) 11.08 H (1.78-5.38) K/mm3 Lymph # (Auto) 0.39 L (1.32-3.57) K/mm3 [place] # (Auto) 0.67 (0.30-0.82) K/mm3 Eos # (Auto) 0.00 L (0.04-0.54) K/mm3 Baso # (Auto) 0.01 (0.01-0.08) K/mm3 Manual Slide Review Abnormal smear Sodium 139 (136-145) mEq/L Potassium 3.7 (3.5-5.1) mEq/L Chloride 108 H (98-107) mEq/L Carbon Dioxide 22 (21-32) mEq/L Anion Gap 12.7 (5-15) BUN 15 (7-18) mg/dL Creatinine 1.2 (0.7-1.3) mg/dL Est Cr Clr Drug Dosing 85.09 mL/min Estimated GFR (MDRD) > 60 (>60) mL/min BUN/Creatinine Ratio 12.5 L (14-18) Glucose 106 (74-106) mg/dL Calcium 7.9 L (8.5-10.1) mg/dL Magnesium 1.5 L (1.8-2.4) mg/dl Total Bilirubin (0.2-1.0) mg/dL AST (15-37) U/L ALT (16-63) U/L Alkaline Phosphatase (46-116) U/L C-Reactive Protein 30.3 H* (<1.0) mg/dL Total Protein (6.4-8.2) g/dl Albumin (3.4-5.0) g/dl Globulin gm/dL Albumin/Globulin Ratio (1-2) Urine Color (Yellow) Urine Appearance (Clear) Urine pH (5.0-8.0) Ur Specific [place] (1.005-1.030) Urine Protein (Negative) Urine Glucose (UA) (Negative) Urine Ketones (Negative) Urine Occult Blood (Negative) Urine Nitrite (Negative) Urine Bilirubin (Negative) Urine Urobilinogen (0.2-1.0) Ur Leukocyte Esterase (Negative) Urine RBC (0-5) /hpf Urine WBC (0-5) /hpf Ur Epithelial Cells (0-5) /hpf Urine Bacteria (FEW) /hpf Urine Mucus (FEW) /hpf C.difficile [id number] C. difficile Tox (PCR) Uriel Results Last 24 Hours: Microbiology 09/25/17 13:53 Aerobic Blood Culture - Preliminary Blood - Venous NO GROWTH AFTER 1 DAY Anaerobic Blood Culture - Preliminary NO GROWTH AFTER 1 DAY 09/25/17 14:02 Aerobic Blood Culture - Preliminary Blood - Venous - Lab Draw NO GROWTH AFTER 1 DAY Anaerobic Blood Culture - Preliminary NO GROWTH AFTER 1 DAY 09/25/17 13:35 - Final Stool / Feces NEGATIVE FOR SHIGA TOXIN 1 - Final NEGATIVE FOR SHIGA TOXIN 2 09/25/17 15:48 Influenza Type A Antigen Screen - Final Nasal Aspirate, Unspecified NEGATIVE INFLUENZA A VIRUS AG Influenza Type B Antigen Screen - Final NEGATIVE INFLUENZA B VIRUS AG 09/25/17 13:35 Stool for WBCs - Final Stool / Feces Med Orders - Current: Current Medications Acetaminophen (Tylenol) 650 mg PO Q4H PRN PRN Reason: Pain (Mild 1-3)/fever Last Admin: 09/26/17 15:16 Dose: 650 mg Hydrocodone Bitart/Acetaminophen ([place] 325-5 Mg) 1 tab PO Q4H PRN PRN Reason: Pain (moderate 4-6) Albuterol/Ipratropium (Duoneb 3.0-0.5 Mg/3 Ml) 3 ml NEB Q4H PRN PRN Reason: Shortness Of Breath/wheezing Hydralazine HCl (Apresoline) 20 mg IVPUSH Q4H PRN PRN Reason: Hypertension Hydromorphone HCl (Dilaudid) 0.25 mg IVPUSH Q2H PRN PRN Reason: Pain (severe 7-10) Levofloxacin/Dextrose 500 mg/ (Premix) 100 mls @ 100 mls/hr IV Q24H [facility] Last Admin: 09/26/17 15:09 Dose: 100 mls/hr Metronidazole 500 mg/ Premix 100 mls @ 100 mls/hr IV Q8H [facility] Last Admin: 09/26/17 11:21 Dose: 100 mls/hr Promethazine HCl 12.5 mg/ (Sodium Chloride) 50.5 mls @ 100 mls/hr IV Q6H PRN PRN Reason: Nausea/Vomiting Sodium Chloride (Normal Saline) 1,000 mls @ 125 mls/hr IV ASDIRECTED [facility] Last Admin: 09/26/17 09:11 Dose: 125 mls/hr Levothyroxine Sodium (Levothyroxine) 25 mcg PO ACBRK [facility] Last Admin: 09/26/17 06:19 Dose: 25 mcg Lorazepam (Ativan) 2 mg IVPUSH Q4H PRN PRN Reason: Seizures Lorazepam (Ativan) 1 mg IV Q6H PRN PRN Reason: Anxiety Magnesium Sulfate (Pharmacy To Dose - Magnesium Replacement) 1 dose .XX ASDIRECTED [facility] Metoprolol Tartrate (Lopressor) 5 mg IVPUSH Q4H PRN PRN Reason: Tachycardia Ondansetron HCl (Zofran) 4 mg IV Q6H PRN PRN Reason: Nausea/Vomiting Potassium Chloride (Pharmacy To Dose - Potassium Replacement) 1 dose .XX ASDIRECTED [facility] Temazepam (Restoril) 15 mg PO BEDTIME PRN PRN Reason: Sleep Last Admin: 09/25/17 22:44 Dose: 15 mg Discontinued Medications Acetaminophen (Tylenol) 975 mg PO NOW ONE Stop: 09/25/17 13:38 Last Admin: 09/25/17 14:01 Dose: 975 mg Sodium Chloride (Normal Saline) 2,000 mls @ 999 mls/hr IV ASDIRECTED [facility] Last Admin: 09/25/17 14:01 Dose: 999 mls/hr Levofloxacin/Dextrose 750 mg/ (Premix) 150 mls @ 100 mls/hr IV ONETIME ONE Stop: 09/25/17 16:55 Last Infusion: 09/25/17 19:59 Dose: 100 mls/hr Sodium Chloride (Normal Saline) 1,000 mls @ 250 mls/hr IV ASDIRECTED [facility] Last Infusion: 09/25/17 19:55 Dose: 999 mls/hr Sodium Chloride (Normal Saline) 1,000 mls @ 250 mls/hr IV ASDIRECTED [facility] Last Admin: 09/26/17 04:31 Dose: 250 mls/hr Magnesium Sulfate 2 gm/ Premix 50 mls @ 25 mls/hr IV ONETIME ONE Stop: 09/26/17 10:59 Last Admin: 09/26/17 08:45 Dose: 25 mls/hr Ketorolac Tromethamine (Toradol) 30 mg IVPUSH ONETIME ONE Stop: 09/25/17 20:48 Last Admin: 09/25/17 20:52 Dose: 30 mg Magnesium Sulfate (Pharmacy To Dose - Magnesium Replacement) 1 dose .XX ASDIRECTED [facility] Metronidazole (Flagyl) 500 mg PO ONETIME ONE Stop: 09/25/17 19:36 Last Admin: 09/25/17 19:55 Dose: 500 mg Potassium Chloride (Klor-Con M20) 40 meq PO Q4H [facility]EUS Stop: 09/26/17 02:01 Last Admin: 09/26/17 03:11 Dose: 40 meq - Exam Quality Assessment: DVT Prophylaxis General: Alert, Oriented, Cooperative, No Acute Distress HEENT: Pupils Equal, Pupils Reactive, EOMI, Mucous Membr. Moist/[place] Neck: Supple Lungs: Clear to Auscultation, Normal Respiratory Effort Cardiovascular: Regular Rate, Regular Rhythm GI/Abdominal Exam: Soft, Non-Tender, No Organomegaly, No Distention, No Mass, Pelvis Stable, Abnormal Bowel Sounds (hypoactive) (Male) Exam: Deferred Back Exam: Normal Inspection, Full Range of Motion Extremities: Normal Inspection, Normal Range of Motion, Non-Tender, No Pedal Edema, Normal Capillary Refill Peripheral Pulses: 2+: Posterior Tibial (L), Posterior Tibial (R), Dorsalis Pedis (L), Dorsalis Pedis (R) Skin: Warm, Dry, Intact Neurological: No New Focal Deficit Psy/Mental Status: Alert, Normal Affect, Normal Mood - Problem List & Annotations (1) Colitis SNOMED Code(s): 08632755 Code(s): K52.9 - NONINFECTIVE GASTROENTERITIS AND COLITIS, UNSPECIFIED Status: Acute Priority: High Current Visit: Yes (2) Diarrhea SNOMED Code(s): 02681611 Code(s): R19.7 - DIARRHEA, UNSPECIFIED Status: Acute Priority: High Current Visit: Yes - Problem List Review Problem List Initiated/Reviewed/Updated: Yes - My Orders Last 24 Hours: My Active Orders 09/26/17 Lunch Clear Liquid Diet [DIET] - Plan Plan:: Assessment/Plan: Acute: Abdominal Colitis - Bacterial vs Viral in etiology - Sloppy Noel and potato salad-likely Staph vs E coli - WBC pos on stool; WBC is 18.06K-->12.17k and CRP is 17.8-->30.3 - Blood Cx, Influenza, Stool Cx, C. Diff negative with pending O&P - Abdominal/Pelvis CT scan shows diffuse colitis - IV Flagyl 500 mg Q8H and Levaquin 500 mg IV daily - Volume Resuscitation Dehydration - 2/2 GI Loss - IV Hydration Hypokalemia - K 3.3 - 2/2 inadequate intake - Replete and monitor Chronic: Hypothyroidism Plan: Admit to [facility] Routine AM Labs Resume Thyroid Medication Adequate IV Hydration Monitor electrolytes Okay to drink Gatorade NPO except oral pills, ice chips, fluids Code status: 1 Most likely D/C tomorrow pending clinical disposition
[2017-09-26] MEDS: Saccharomyces Boulardii (Probiotic) 250 MG Cap PO SCH ×2 (18:52→20:52)
[2017-09-27] MEDS: Temazepam 15 MG Cap PO PRN (01:25)
[2017-09-27] MEDS: Sodium Chloride 0.9% 1,000 ML IV SCH ×2 (01:29→09:44)
[2017-09-27] MEDS: metroNIDAZOLE/Normal Saline 500 MG in Premix Bag 1 BAG IV SCH ×2 (03:50→11:21)
[2017-09-27] MEDS: Levothyroxine 25 MCG Tab PO SCH (06:33)
[2017-09-27] MEDS: Saccharomyces Boulardii (Probiotic) 250 MG Cap PO SCH (09:43)
--- NOTE | 2017-09-27 12:08 | PCM.DCSUM1 ---
Discharge Summary - Hospital Course HPI Initial Comments: This is a 52 yo white male with past medical hx/o hypothyroidism who comes in for evaluation of watery diarrhea that started last. He denies ingesting unusual drinks or liquids. His last meal was at about 1630; a couple days old of home made sloppy danii and potato salad. He denies any fever or chills. He reports no other family members who fell ill. He is 3 years behind of his screening colonoscopy. His initial workup in the emergency department shows a CBC remarkable for 18.06 , neutrophils of 92.6%, lymphocytes of 2.4%, monocytes of 4.5% and eosinophils of 0.1%. His coagulation studies show PT of 12.2, INR of 1.112, and a PTT of 30. His chemistry is significant for sodium of 135, potassium of 3.3, anion gap of 16.3, BUN of 20, creatinine of 1.5, total bilirubin of 1.1, alkaline phosphatase of 45, and CRP of 17.8. UA is negative for UTI. C difficile screening is negative. He is being admitted for abdominal colitis. He is full code. generalized - Discharge Data Discharge Date: 09/27/17 (ADMIT 09/25/17) Discharge Disposition: Home, Self-Care 01 Condition: Good - Discharge Diagnosis/Problem(s) (1) Colitis SNOMED Code(s): 32769399 ICD Code: K52.9 - NONINFECTIVE GASTROENTERITIS AND COLITIS, UNSPECIFIED Status: Acute Priority: High Current Visit: Yes (2) Diarrhea SNOMED Code(s): 20537361 ICD Code: R19.7 - DIARRHEA, UNSPECIFIED Status: Acute Priority: High Current Visit: Yes - Patient Summary/Data Operative Procedure(s) Performed: none Complications: none Consults: Consultations 09/25/17 21:22 Consult to Case Management [CONS] Routine Consult to Frame Stripper [CONS] Routine Labs Pending at D/C: none Recommended Follow-up Testing/Procedures: Follow up with PCP in 7-10 days Planned Operative Procedure(s) after DC: none Hospital Course: Assessment/Plan: Acute: Abdominal Colitis - Bacterial vs Viral in etiology - Sloppy Danii and potato salad-likely Staph vs E coli - WBC pos on stool; WBC is 18.06-->12.17-->6.81 and CRP is 17.8-->30.3-->18.7 - Blood Cx, Influenza, Stool Cx, C. Diff negative with pending O&P - Abdominal/Pelvis CT scan shows diffuse colitis - IV Flagyl 500 mg Q8H and Levaquin 500 mg IV daily - Volume Resuscitation Dehydration - 2/2 GI Loss - IV Hydration Tobacco use -Chewer -Provided practical counseling and cessation education and offered prescription to help quit -Does not want to quit at this time Resolved: Hypokalemia - K 3.3 -->3.6 - 2/2 inadequate intake - Replete and monitor Chronic: Hypothyroidism Plan: Admit to [facility] Routine AM Labs Resume Thyroid Medication Adequate IV Hydration Monitor electrolytes Full liquid diet, advance as tolerated Code status: 1 D/C home today Christopher has recovered quite well after being admitted for abdominal colitis. He had multiple tests done. All have been negative except for WBC in stool and CT showing diffuse colitis. The labs are now trending down and he clinically is showing improvement. He no longer has abdominal pain or diarrhea. He should follow-up with his primary care provider in 7-10 days. He was discharged home on Levaquin 500mg Q daily x 5 days, Flagyl 500mg TID x5 days, and Probiotics for completion of treatment. He will be discharged home today. - Patient Instructions Diet: Full Liquid Diet (advance as tolerated) Diet, Other: "BRAT" diet: Banana, Rice, Applesauce, [place] Activity: As Tolerated Driving: May Drive Today Showering/Bathing: May Shower Notify Provider of: Fever, Increased Pain, Nausea and/or Vomiting - Discharge Plan Prescriptions/Med Rec: Levofloxacin [Levaquin] 500 mg PO DAILY #5 tab metroNIDAZOLE [Flagyl] 500 mg PO TID #15 tab Saccharomyces Boulardii [Florastor] 250 mg PO BID #40 cap Home Medications: Home Meds Levothyroxine [Synthroid] 100 mcg PO DAILY 09/26/17 [History] Levofloxacin [Levaquin] 500 mg PO DAILY #5 tab 09/27/17 [Rx] Saccharomyces Boulardii [Florastor] 250 mg PO BID #40 cap 09/27/17 [Rx] metroNIDAZOLE [Flagyl] 500 mg PO TID #15 tab 09/27/17 [Rx] Patient Handouts: Food Choices to Help Relieve Diarrhea, Adult, Dehydration, Adult, [id number], Colitis, Diarrhea, Adult, [id number], Steps to Quit Smoking, Irritable Bowel Syndrome, Adult Referrals: PCP,Not In Area [Primary Care Provider] - - Discharge Summary/Plan Comment DC Time >30 min.: Yes (40) - General Info Admission Dx/Problem (Free Text: Admission Diagnosis/Problem Admission Diagnosis/Problem Colitis Subjective Update: In to see Christopher today. He is lying in bed. Overall he is doing quite well. He has no complaints, states he feels great today and no longer has abdominal pain or diarrhea. He has been sleeping well. Good appetite- advance to full liquid diet. Ambulating. Pain is controlled. No Fever, chills, nausea, vomiting. No concerns from nursing. He will be d/c'd home today. Discussed advancing to "BRAT " diet and avoiding dairy. Functional Status: Reports: Pain Controlled, Tolerating Diet, Ambulating, Urinating - Review of Systems General: Reports: No Symptoms. Denies: Fever, Chills HEENT: Reports: No Symptoms Pulmonary: Reports: No Symptoms Cardiovascular: Reports: No Symptoms Gastrointestinal: Reports: No Symptoms. Denies: Abdominal Pain, Diarrhea, Nausea, Vomiting Genitourinary: Reports: No Symptoms Musculoskeletal: Reports: No Symptoms Skin: Reports: No Symptoms Neurological: Reports: No Symptoms Psychiatric: Reports: No Symptoms - Patient Data Vitals - Most Recent: Last Vital Signs Temp 99.0 F 09/27/17 08:42 Pulse 76 09/27/17 08:42 Resp 16 09/27/17 08:42 BP 123/79 09/27/17 08:42 Pulse Ox 95 09/27/17 08:42 Weight - Most Recent: 213 lb 12.8 oz I&O - Last 24 hours: Intake & Output 09/26/17 09/27/17 09/27/17 22:59 06:59 14:59 Intake Total 9143 3626 409 Output Total 1300 Balance 5497 4144 425 Lab Results - Last 24 hrs: Laboratory Results - last 24 hr 09/27/17 09/27/17 Range/Units 05:40 05:40 WBC 6.81 (4.23-9.07) K/mm3 RBC 4.45 L (4.63-6.08) M/mm3 Hgb 13.6 L (13.7-17.5) gm/L Hct 39.7 L (40.1-51.0) % MCV 89.2 (79.0-92.2) fl MCH 30.6 (25.7-32.2) pg MCHC 34.3 (32.2-35.5) g/dl RDW Std Deviation 42.8 (35.1-43.9) fL Plt Count 135 L (163-337) K/mm3 MPV 9.4 (9.4-12.3) fl Neut % (Auto) 79.7 H (34.0-67.9) % Lymph % (Auto) 9.4 L (21.8-53.1) % [place] % (Auto) 8.8 (5.3-12.2) % Eos % (Auto) 1.9 (0.8-7.0) Baso % (Auto) 0.1 (0.1-1.2) % Neut # (Auto) 5.42 H (1.78-5.38) K/mm3 Lymph # (Auto) 0.64 L (1.32-3.57) K/mm3 [place] # (Auto) 0.60 (0.30-0.82) K/mm3 Eos # (Auto) 0.13 (0.04-0.54) K/mm3 Baso # (Auto) 0.01 (0.01-0.08) K/mm3 Manual Slide Review Abnormal smear Sodium 141 (136-145) mEq/L Potassium 3.6 (3.5-5.1) mEq/L Chloride 108 H (98-107) mEq/L Carbon Dioxide 24 (21-32) mEq/L Anion Gap 12.6 (5-15) BUN 6 L (7-18) mg/dL Creatinine 0.9 (0.7-1.3) mg/dL Est Cr Clr Drug Dosing 113.45 mL/min Estimated GFR (MDRD) > 60 (>60) mL/min BUN/Creatinine Ratio 6.7 L (14-18) Glucose 110 H (74-106) mg/dL Calcium 8.1 L (8.5-10.1) mg/dL Magnesium 1.8 (1.8-2.4) mg/dl C-Reactive Protein 18.7 H* (<1.0) mg/dL SHMUEL Results - Last 24 hrs: Microbiology 09/25/17 13:35 Stool Culture - Preliminary Stool / Feces NORMAL ENTERIC PAULA 2 DAYS - Final NEGATIVE FOR SHIGA TOXIN 1 - Final NEGATIVE FOR SHIGA TOXIN 2 09/25/17 13:53 Aerobic Blood Culture - Preliminary Blood - Venous NO GROWTH AFTER 1 DAY Anaerobic Blood Culture - Preliminary NO GROWTH AFTER 1 DAY 09/25/17 14:02 Aerobic Blood Culture - Preliminary Blood - Venous - Lab Draw NO GROWTH AFTER 1 DAY Anaerobic Blood Culture - Preliminary NO GROWTH AFTER 1 DAY Med Orders - Current: Current Medications Acetaminophen (Tylenol) 650 mg PO Q4H PRN PRN Reason: Pain (Mild 1-3)/fever Last Admin: 09/26/17 15:16 Dose: 650 mg Hydrocodone Bitart/Acetaminophen ([place] 325-5 Mg) 1 tab PO Q4H PRN PRN Reason: Pain (moderate 4-6) Albuterol/Ipratropium (Duoneb 3.0-0.5 Mg/3 Ml) 3 ml NEB Q4H PRN PRN Reason: Shortness Of Breath/wheezing Hydralazine HCl (Apresoline) 20 mg IVPUSH Q4H PRN PRN Reason: Hypertension Hydromorphone HCl (Dilaudid) 0.25 mg IVPUSH Q2H PRN PRN Reason: Pain (severe 7-10) Levofloxacin/Dextrose 500 mg/ (Premix) 100 mls @ 100 mls/hr IV Q24H [facility] Last Admin: 09/26/17 15:09 Dose: 100 mls/hr Metronidazole 500 mg/ Premix 100 mls @ 100 mls/hr IV Q8H [facility] Last Admin: 09/27/17 11:21 Dose: 100 mls/hr Promethazine HCl 12.5 mg/ (Sodium Chloride) 50.5 mls @ 100 mls/hr IV Q6H PRN PRN Reason: Nausea/Vomiting Sodium Chloride (Normal Saline) 1,000 mls @ 125 mls/hr IV ASDIRECTED [facility] Last Admin: 09/27/17 09:44 Dose: 125 mls/hr Levothyroxine Sodium (Levothyroxine) 25 mcg PO ACBRK [facility] Last Admin: 09/27/17 06:33 Dose: 25 mcg Lorazepam (Ativan) 2 mg IVPUSH Q4H PRN PRN Reason: Seizures Lorazepam (Ativan) 1 mg IV Q6H PRN PRN Reason: Anxiety Magnesium Sulfate (Pharmacy To Dose - Magnesium Replacement) 1 dose .XX ASDIRECTED [facility] Metoprolol Tartrate (Lopressor) 5 mg IVPUSH Q4H PRN PRN Reason: Tachycardia Ondansetron HCl (Zofran) 4 mg IV Q6H PRN PRN Reason: Nausea/Vomiting Potassium Chloride (Pharmacy To Dose - Potassium Replacement) 1 dose .XX ASDIRECTED [facility] Saccharomyces Boulardii (Florastor) 250 mg PO BID [facility] Last Admin: 09/27/17 09:43 Dose: 250 mg Temazepam (Restoril) 15 mg PO BEDTIME PRN PRN Reason: Sleep Last Admin: 09/27/17 01:25 Dose: 15 mg Discontinued Medications Acetaminophen (Tylenol) 975 mg PO NOW ONE Stop: 09/25/17 13:38 Last Admin: 09/25/17 14:01 Dose: 975 mg Sodium Chloride (Normal Saline) 2,000 mls @ [facility] Last Admin: 09/25/17 14:01 Dose: 999 mls/hr Levofloxacin/Dextrose 750 mg/ (Premix) 150 mls @ 100 mls/hr IV ONETIME ONE Stop: 09/25/17 16:55 Last Infusion: 09/25/17 19:59 Dose: 100 mls/hr Sodium Chloride (Normal Saline) 1,000 mls @ 250 [facility] Last Infusion: 09/25/17 19:55 Dose: 999 mls/hr Sodium Chloride (Normal Saline) 1,000 mls @ [facility] Last Admin: 09/26/17 04:31 Dose: 250 mls/hr Magnesium Sulfate 2 gm/ Premix 50 mls @ 25 mls/hr IV ONETIME ONE Stop: 09/26/17 10:59 Last Admin: 09/26/17 08:45 Dose: 25 mls/hr Ketorolac Tromethamine (Toradol) 30 mg IVPUSH ONETIME ONE Stop: 09/25/17 20:48 Last Admin: 09/25/17 20:52 Dose: 30 mg Magnesium Sulfate (Pharmacy To Dose - Magnesium Replacement) 1 dose .XX ASDIRECTED [facility] Metronidazole (Flagyl) 500 mg PO ONETIME ONE Stop: 09/25/17 19:36 Last Admin: 09/25/17 19:55 Dose: 500 mg Potassium Chloride (Klor-Con M20) 40 meq PO Q4H [facility] Stop: 09/26/17 02:01 Last Admin: 09/26/17 03:11 Dose: 40 meq - Exam Quality Assessment: Reports: DVT Prophylaxis General: Reports: Alert, Oriented, Cooperative, No Acute Distress HEENT: Reports: Pupils Equal, Pupils Reactive, EOMI, Mucous Membr. Moist/[place] Neck: Reports: Supple Lungs: Reports: Clear to Auscultation, Normal Respiratory Effort Cardiovascular: Reports: Regular Rate, Regular Rhythm GI/Abdominal Exam: Normal Bowel Sounds, Soft, Non-Tender, No Organomegaly, No Distention, No Abnormal Bruit, No Mass, Pelvis Stable (Male) Exam: Deferred Rectal (Males) Exam: Deferred Back Exam: Reports: Normal Inspection, Full Range of Motion Extremities: Normal Inspection, Normal Range of Motion, Non-Tender, No Pedal Edema, Normal Capillary Refill Skin: Reports: Warm, Dry, Intact Neurological: Reports: No New Focal Deficit Psy/Mental Status: Reports: Alert, Normal Affect, Normal Mood
[2017-09-27] MEDS: Levofloxacin/Dextrose 5%-Water 500 MG in Premix Bag 1 BAG IV SCH (14:46)
[2017-09-28] MEDS ORDERED: Levothyroxine 100 MCG Tab PO SCH (06:00)
== END 2017-09-27 16:33 | disposition home or self-care (01) | DRG 248 ==
LOC: JD.ED 13:07 → JD.MS 21:00
PROVIDERS: ADMIT Internal Medicine; ATTEND Internal Medicine
DX: E86.0 Dehydration (principal); A04.9 Bacterial intestinal infection, unspecified; A08.4 Viral intestinal infection, unspecified; E03.9 Hypothyroidism, unspecified; E87.6 Hypokalemia; F17.220 Nicotine dependence, chewing tobacco, uncomplicated; Z79.899 Other long term (current) drug therapy
CPT/HCPCS: 36415; 71046; 71046-26; 74018; 74018-26; 74176; 74176-26; 80048; 80053; 81001; 83605; 83735; 84443; 85025; 85610; 85730; 86140; 86738; 87040; 87046; 87493; 87804; 89055; 93005; 96361; 96365; 96366; 99221; 99231; 99239; 99285-25; A9270-GY; J1885; J1956; J3475; J7040